=== PATIENT | female | born 1980 | race African-American/Black ===

== ENCOUNTER 2017-05-19 17:24 | Emergency (ER) | payer OTHER ==
[2017-05-19] MEDS ORDERED: CEFAZOLIN 1 GM/D5W RTU 1 GM/50 ML RTUPB IV ONE (17:26)
[2017-05-19] MEDS ORDERED: DIPH/PERTUSS(ACELL)/TETANUS VAC/PF 0.5 ML SYR (>=10YO) IM ONE (17:26)
[2017-05-19] MEDS ORDERED: FENTANYL CITRATE INJ/PF 100 MCG/2 ML AMPUL IV ONE (17:26)
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
[2017-05-19] MEDS ORDERED: LIDOCAINE 1% INJ-PF (10 MG/ML) 30 ML SDV INJ ONE (17:55)
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
[2017-05-19] MEDS ORDERED: HYDROMORPHONE HCL INJ/PF 2 MG/ML AMPULE ONE (18:46)
[2017-05-19 19:26] VITALS: BP 131/82
== END 2017-05-19 19:25 | disposition home or self-care (01) ==
LOC: ER 17:24
PROC: 0HQLXZZ Repair Left Lower Leg Skin, External Approach (ICD-10-PCS; principal; 2017-05-19)
DX: S81.012A Laceration without foreign body, left knee, initial encounter (principal); S80.211A Abrasion, right knee, initial encounter; S40.211A Abrasion of right shoulder, initial encounter; S40.811A Abrasion of right upper arm, initial encounter; M25.511 Pain in right shoulder; V29.9XXA Motorcycle rider (driver) (passenger) injured in unspecified traffic accident, initial encounter; Z23 Encounter for immunization
CPT/HCPCS: 99284; 90471; 96375; 96365; 73080; 73090; 73030; 73560; 90715; 12002; J0690; J3010; J3490; J1170

== ENCOUNTER 2017-09-29 15:05 | Emergency (ER) | payer OTHER ==
--- NOTE | 2017-09-29 15:39 | ER Document Report ---
ED General - General Chief Complaint: Leg Pain Stated Complaint: LEG PAIN WITH HX OF BLOOD CLOT Time Seen by Provider: 09/29/17 15:31 Mode of Arrival: Ambulatory Information source: Patient Notes: 37-year-old female who has had to separate instances of DVTs in the past presents with complaints of right calf pain. Patient denies any chest pain shortness breath. Patient was on Coumadin at one point but this was stopped, she has not been on any blood thinners recently and is unsure why TRAVEL OUTSIDE OF THE [place] IN LAST 30 DAYS: No - HPI Onset: Other - 2 day duration Onset/Duration: Persistent Quality of pain: Achy Severity: Mild Pain Level: 1 Associated symptoms: Body/muscle aches Exacerbated by: Movement Relieved by: Denies Similar symptoms previously: Yes Recently seen / treated by doctor: Yes - Related Data Allergies/Adverse Reactions: No Known Allergies Allergy (Verified 09/29/17 15:09) Past Medical History - Social History Smoking Status: Never Smoker Cigarette use (# per day): No Chew tobacco use (# tins/day): No Smoking Education Provided: No Family History: None - Immunizations Hx Diphtheria, Pertussis, Tetanus Vaccination: Yes Review of Systems - Review of Systems Notes: REVIEW OF SYSTEMS: CONSTITUTIONAL : Denies fever, chills, or sweats. Denies recent illness. EENT: Denies eye, ear, throat, or mouth pain or symptoms. Denies nasal or sinus congestion or discharge. Denies throat, tongue, or mouth swelling or difficulty swallowing. CARDIOVASCULAR: Denies chest pain. Denies palpitations or racing or irregular heart beat. Denies ankle edema. RESPIRATORY: Denies cough, cold, or chest congestion. Denies shortness of breath, difficulty breathing, or wheezing. GASTROINTESTINAL: Denies abdominal pain or distention. Denies nausea, vomiting , or diarrhea. Denies blood in vomitus, stools, or per rectum. Denies black, tarry stools. Denies constipation. GENITOURINARY: Denies difficulty urinating, painful urination, burning, frequency, blood in urine, or discharge. FEMALE GENITOURINARY: Denies vaginal bleeding, heavy or abnormal periods, irregular periods. Denies vaginal discharge or odor. MUSCULOSKELETAL: Right calf pain SKIN: Healing wound right rose HEMATOLOGIC : Denies easy bruising or bleeding. LYMPHATIC: Denies swollen, enlarged glands. NEUROLOGICAL: Denies confusion or altered mental status. Denies passing out or loss of consciousness. Denies dizziness or lightheadedness. Denies headache. Denies weakness or paralysis or loss of use of either side. Denies problems with gait or speech. Denies sensory loss, numbness, or tingling. Denies seizures. PSYCHIATRIC: Denies anxiety or stress. Denies depression, suicidal ideation, or homicidal ideation. ALL OTHER SYSTEMS REVIEWED AND NEGATIVE. PHYSICAL EXAMINATION: GENERAL: Well-appearing, well-nourished and in no acute distress. HEAD: Atraumatic, normocephalic. EYES: Pupils equal round and reactive to light, extraocular movements intact, conjunctiva are normal. ENT: Nares patent, oropharynx clear without exudates. Moist mucous membranes. NECK: Normal range of motion, supple without lymphadenopathy LUNGS: Breath sounds clear to auscultation bilaterally and equal. No wheezes rales or rhonchi. HEART: Regular rate and rhythm without murmurs ABDOMEN: Soft, nontender, nondistended abdomen. No guarding, no rebound. No masses appreciated. Female : deferred Musculoskeletal: Tenderness of the right calf NEUROLOGICAL: Cranial nerves grossly intact. Normal speech, normal gait. Normal sensory, motor exams PSYCH: Normal mood, normal affect. SKIN: Healing wound right rose Dictation was performed using [employer] voice recognition software Physical Exam - Vital signs Vitals: Temp Pulse Resp BP Pulse Ox 98.7 F 75 16 116/65 100 09/29/17 15:21 09/29/17 15:21 09/29/17 15:21 09/29/17 15:21 09/29/17 15:21 Course - Re-evaluation Re-evalutation: 09/29/17 15:45 I am unsure why the patient who had 2 separate instances of DVTs would be off blood thinners at this point in her life ultrasound has been ordered 09/29/17 21:14 Doppler was positive for 2 DVTs, patient was made aware, she will be started on Xarelto, I did get her free 30 day prescription for this, patient will be given hematology follow-up. She is otherwise stable After performing a Medical Screening Examination, I estimate there is LOW risk for ACUTE CORONARY SYNDROME, PULMONARY EMBOLI, RESPIRATORY FAILURE, SEPSIS OR MENINGITIS, thus I consider the discharge disposition reasonable. I have reevaluated this patient multiple times and no significant life threatening changes are noted. The patient and I have discussed the diagnosis and risks, and we agree with discharging home with close follow-up. We also discussed returning to the Emergency Department immediately if new or worsening symptoms occur. We have discussed the symptoms which are most concerning (e.g., changing or worsening pain, trouble swallowing or breathing, neck stiffness, fever) that necessitate immediate return. - Vital Signs Vital signs: Temp Pulse Resp BP Pulse Ox 98.9 F 84 18 127/78 H 98 09/29/17 16:31 09/29/17 16:31 09/29/17 16:31 09/29/17 16:31 09/29/17 16:31 - Diagnostic Test Radiology reviewed: Image reviewed, Reports reviewed - DVT Discharge - Discharge Clinical Impression: DVT (deep venous thrombosis) Qualifiers: DVT location: lower extremity Affected thrombotic vein of extremity: femoral Chronicity: acute Laterality: right Qualified Code(s): I82.411 - Acute embolism and thrombosis of right femoral vein Condition: Stable Disposition: HOME, SELF-CARE Instructions: DVT Outpatient Treatment ([facility]) Prescriptions: Apixaban [Eliquis 5 mg Tablet] 5 mg PO ASDIR PRN 30 Days tablet PRN Reason: Hydrocodone/Acetaminophen [[place]ow 5-325 mg Tablet] 1 tab PO Q6 #20 tablet Referrals: SHERON ANDRES MD [ACTIVE STAFF] - Follow up tomorrow
[2017-09-29] MEDS ORDERED: APIXABAN 5 MG TABLET PO ONE (16:19)
[2017-09-29 16:33] VITALS: BP 127/78
--- NOTE | 2017-09-29 16:37 | RADIOLOGY REPORT (SQ) ---
EXAM DESCRIPTION: VENOUS UNILATERAL LOWER COMPLETED DATE/TIME: 09/29/2017 4:25 pm REASON FOR STUDY: left leg edema COMPARISON: None. TECHNIQUE: Dynamic and static nicole scale and color images acquired of the right leg venous system. S elected spectral images acquired with additional compression and augmentation maneuvers. The contrala teral common femoral vein and saphenofemoral junction were also imaged. Images stored on PACS. LIMITATIONS: None. FINDINGS: COMMON FEMORAL: Normal phasicity, compression and augmentation. No visualized echogenic ma terial on nicole scale. No defects on color images. FEMORAL: Proximal vessels normal. There is thrombus in the distal femoral vein. No compression. POPLITEAL: Acute thrombus. No compression or augmentation. CALF VESSELS: Normal compression, augmentation. No visualized echogenic material on nicole scale. No de fects on color images. GSV and SSV: Normal compression, augmentation. No visualized echogenic material on nicole scale. No def ects on color images. ANY DEEP VENOUS INSUFFICIENCY: Not evaluated. ANY EVIDENCE OF POPLITEAL CYST: No. OTHER: No other significant finding. CONTRALATERAL COMMON FEMORAL VEIN AND SAPHENOFEMORAL JUNCTION: Normal phasicity, compression and augmentation. No visualized echogenic material on nicole scale. No de fects on color images. IMPRESSION: Acute thrombus distal femoral vein and popliteal vein on the right. COMMENT: Pertinent findings on the imaging study reported as a CRITICAL RESULT to CORDELIA DE LA VEGA DO at16:31 on 09/29/2017. Category of Critical Result: Acute DVT TECHNICAL DOCUMENTATION: JOB ID: [id number] [employer]- All Rights Reserved
== END 2017-09-29 16:41 | disposition home or self-care (01) ==
LOC: ER 15:05
DX: I82.411 Acute embolism and thrombosis of right femoral vein (principal); M79.604 Pain in right leg; M79.1 Myalgia; Z86.718 Personal history of other venous thrombosis and embolism
CPT/HCPCS: 93971; 99283

== ENCOUNTER → 2017-10-03 | Outpatient (CLI) | payer OTHER ==
--- NOTE | 2017-10-04 08:30 | XCELERA REPORT ---
[address] [address] Lower Extremity Venous Evaluation Name: MADHAV WATSON Age: 37 yrs Gender: Female : 1980 Patient Status: Outpatient Patient Location: Study Date: 10/03/2017 04:14 PM Procedure: Color flow and duplex imaging of the veins of the right lower extremity as well as the left Common Femoral vein. Reason For Study: RUTHYE M79.604 Ordering Physician: SHERON ANDRES Performed By: Angie Rhodes Right Sided Venous Evaluation Abnormal vessel filling , partial compression and as well as Colour flow through the Femoral, Popliteal noted. Left Sided Venous Evaluation The left common femoral vein is fully compressible. Spontaneous and phasic flow is present in the left common femoral vein. Interpretation Summary Extensive, chronic changes of DVT in the right tower extremity. Similar to that seen on prior studies. : SHERON ANDRES > Franc Willis
== END ==
LOC: SP 15:44
PROVIDERS: ATTEND Internal Medicine Medical Oncology
DX: M79.604 Pain in right leg (principal)
CPT/HCPCS: 93971

== ENCOUNTER → 2017-10-23 | Outpatient (CLI) | payer OTHER | LOC: RAD 15:50 | PROVIDERS: ATTEND Internal Medicine Medical Oncology | DX: I26.99 Other pulmonary embolism without acute cor pulmonale (principal); Z53.8 Procedure and treatment not carried out for other reasons ==